=== PATIENT | male | born 1985 | race Caucasian/White ===

== ENCOUNTER 2017-04-28 16:56 | Emergency (ER) | payer MEDICARE, OTHER ==
[~2017-04-28] VITALS: Ht 167.6 cm; Wt 80.5 kg
[2017-04-28] MEDS ORDERED: PREDNISONE 20MG TABLET PO ONE (22:30)
[2017-04-28 22:43] VITALS: BP 133/87
== END 2017-04-28 22:45 | disposition home or self-care (01) ==
LOC: ER 17:57
DX: J20.9 Acute bronchitis, unspecified (principal); E66.9 Obesity, unspecified; Z68.28 Body mass index [BMI] 28.0-28.9, adult
CPT/HCPCS: 71045; 99283; J7512

== ENCOUNTER 2018-10-14 11:44 | Emergency (ER) | payer MEDICARE, OTHER ==
[~2018-10-14] VITALS: Ht 167.6 cm; Wt 79.0 kg
[2018-10-14 12:54] VITALS: BP 132/84
== END 2018-10-14 12:55 | disposition home or self-care (01) ==
LOC: ER 11:44
DX: S30.1XXA Contusion of abdominal wall, initial encounter (principal); W01.198A Fall on same level from slipping, tripping and stumbling with subsequent striking against other object, initial encounter; Y93.89 Activity, other specified; Y92.89 Other specified places as the place of occurrence of the external cause; Y99.8 Other external cause status
CPT/HCPCS: 99281

== ENCOUNTER 2018-10-16 11:50 | Emergency (ER) | payer MEDICARE, OTHER ==
[~2018-10-16] VITALS: Ht 167.6 cm; Wt 75.0 kg
[2018-10-16 11:59] VITALS: BP 122/72
[2018-10-16] MEDS ORDERED: IBUPROFEN 800MG TABLET PO ONE (12:30)
== END 2018-10-16 13:50 | disposition home or self-care (01) ==
LOC: ER 11:50
DX: S20.20XA Contusion of thorax, unspecified, initial encounter (principal); W01.0XXA Fall on same level from slipping, tripping and stumbling without subsequent striking against object, initial encounter; Y93.89 Activity, other specified; Y92.012 Bathroom of single-family (private) house as the place of occurrence of the external cause
CPT/HCPCS: 71111; 99283

== ENCOUNTER 2019-11-14 17:36 | Emergency (ER) | payer MEDICARE, MEDICAID ==
[~2019-11-14] VITALS: Ht 165.1 cm; Wt 74.0 kg
[2019-11-14] MEDS ORDERED: DIPHENHYDRAMINE 25MG CAPSULE PO ONE (18:00)
[2019-11-14] MEDS ORDERED: HYDROCORTISONE 1% CREAM 30GM TOP ONE (18:00)
[2019-11-14 18:53] VITALS: BP 114/82
== END 2019-11-14 18:54 | disposition home or self-care (01) ==
LOC: ER 17:36
DX: L25.9 Unspecified contact dermatitis, unspecified cause (principal)
CPT/HCPCS: 99283; Q0163

== ENCOUNTER 2019-12-28 10:19 | Emergency (ER) | payer MEDICARE, MEDICAID ==
[~2019-12-28] VITALS: Ht 167.6 cm; Wt 75.0 kg
[2019-12-28 10:22] VITALS: BP 123/86
== END 2019-12-28 10:53 | disposition home or self-care (01) ==
LOC: ER 10:19
DX: M25.561 Pain in right knee (principal)
CPT/HCPCS: 99282

== ENCOUNTER 2021-01-29 19:02 | Emergency (ER) | payer MEDICARE, MEDICAID ==
[~2021-01-29] VITALS: Ht 167.6 cm; Wt 79.1 kg
[2021-01-29 20:00] VITALS: BP 127/87
== END 2021-01-30 00:12 | disposition home or self-care (01) ==
LOC: ER 19:02
DX: B34.9 Viral infection, unspecified (principal); Z20.822 Contact with and (suspected) exposure to COVID-19
CPT/HCPCS: 99283; C9803; U0003; U0005

== ENCOUNTER 2021-02-08 22:26 | Emergency (ER) | payer MEDICARE, MEDICAID ==
[~2021-02-08] VITALS: Ht 167.6 cm; Wt 82.0 kg
[2021-02-08 22:53] VITALS: BP 126/86
[2021-02-08] MEDS ORDERED: VALA100044 MT (23:48)
== END 2021-02-09 00:25 | disposition home or self-care (01) ==
LOC: ER 22:26
DX: A60.01 Herpesviral infection of penis (principal)
CPT/HCPCS: 99283

== ENCOUNTER 2021-03-22 19:46 | Emergency (ER) | payer MEDICARE, MEDICAID ==
[~2021-03-22] VITALS: Ht 167.6 cm; Wt 81.0 kg
[~2021-03-22 19:46] MED LIST: VALA100044 MT
[2021-03-22 21:25] VITALS: BP 130/88
== END 2021-03-22 23:15 | disposition home or self-care (01) ==
LOC: ER 19:46
DX: U07.1 COVID-19 (principal)
CPT/HCPCS: 99283; C9803; U0003; U0005

== ENCOUNTER 2021-09-30 16:48 | Emergency (ER) | payer MEDICARE, MEDICAID ==
[~2021-09-30] VITALS: Ht 167.6 cm; Wt 79.0 kg
[2021-09-30] MEDS ORDERED: IBUPROFEN 600MG TABLET PO STA (17:14)
[2021-09-30] MEDS ORDERED: IBUP-2029 PO (18:28)
[2021-09-30 18:41] VITALS: BP 137/86
== END 2021-09-30 18:42 | disposition home or self-care (01) ==
LOC: ER 16:48
DX: S60.221A Contusion of right hand, initial encounter (principal); W22.8XXA Striking against or struck by other objects, initial encounter; Y93.89 Activity, other specified; Y92.018 Other place in single-family (private) house as the place of occurrence of the external cause
CPT/HCPCS: 73130; 99283

== ENCOUNTER 2021-10-22 23:10 | Emergency (ER) | payer MEDICARE, MEDICAID ==
[~2021-10-22] VITALS: Ht 170.2 cm; Wt 78.4 kg
[~2021-10-22 23:10] MED LIST changes: +IBUP-2029 PO
[2021-10-23] MEDS ORDERED: FAMO-135 MT (05:22)
[2021-10-23 06:07] VITALS: BP 128/78
== END 2021-10-23 05:40 | disposition home or self-care (01) ==
LOC: ER 23:39
DX: K21.9 Gastro-esophageal reflux disease without esophagitis (principal); F10.188 Alcohol abuse with other alcohol-induced disorder; Y90.9 Presence of alcohol in blood, level not specified; R03.0 Elevated blood-pressure reading, without diagnosis of hypertension; Z71.41 Alcohol abuse counseling and surveillance of alcoholic
CPT/HCPCS: 99281; 99283

== ENCOUNTER 2022-01-30 21:17 | Emergency (ER) | payer MEDICARE, MEDICAID ==
[~2022-01-30] VITALS: Ht 167.6 cm; Wt 84.5 kg
[~2022-01-30 21:17] MED LIST changes: +FAMO-135 MT
[2022-01-30 21:24] VITALS: BP 125/82
== END 2022-01-31 07:36 | disposition left against medical advice (07) ==
LOC: ER 21:17
DX: R05.9 Cough, unspecified (principal); R06.02 Shortness of breath
CPT/HCPCS: 71045; 93005; 99283

== ENCOUNTER 2022-05-08 12:31 | Emergency (ER) | payer MEDICARE, MEDICAID ==
[~2022-05-08] VITALS: Ht 167.6 cm; Wt 79.0 kg
[2022-05-08 13:07] VITALS: BP 123/85
[2022-05-08 14:24] LABS: CLARITY URINE CLOUDY (CLEAR); COLOR URINE YELLOW (YELLOW); KETONES URINE 1+ (NEGATIVE); LEUKOCYTE ESTERASE URINE NEGATIVE (NEGATIVE); NITRITE URINE NEGATIVE (NEGATIVE); OCCULT BLOOD URINE NEGATIVE (NEGATIVE); PH URINE 5.5 (4.5-8.0); PROTEIN URINE TRACE (NEGATIVE); SPECIFIC GRAVITY URINE 1.022 (1.005-1.030); UROBILINOGEN URINE 0.2 E.U./dL (0.2-1.0)
== END 2022-05-08 22:17 | disposition left against medical advice (07) ==
LOC: ER 12:31
DX: Z53.21 Procedure and treatment not carried out due to patient leaving prior to being seen by health care provider (principal)
CPT/HCPCS: 81003